=== PATIENT | female | born 1945 | race Caucasian/White ===

== ENCOUNTER 2019-09-20 18:02 | Inpatient (IN) | payer MEDICAID, MEDICARE, OTHER ==
[~2019-09-20] VITALS: Ht 175.3 cm; Wt 96.2 kg
--- NOTE | 2019-09-20 18:06 | NUR ---
PT IS IN ROOM #5 UNDER DIRECT OBSERVATION OF DENISE DIAZ. DR SAUL EVALUATED THE PT.
--- NOTE | 2019-09-20 18:15 | NUR ---
Patient medically clear to be admitted to MHU unit report will be given to receiving rn.
[2019-09-20] MEDS ORDERED: METO50TA16 PO (18:17)
[2019-09-20] MEDS ORDERED: ASPI81TA31 PO (18:17)
[2019-09-20] MEDS ORDERED: LOSA50TA39 PO (18:17)
--- NOTE | 2019-09-20 18:20 | NUR ---
Telephone report given to receiving R.N. by meteorologist in charger[place]. Rendon.
[2019-09-20 20:15] VITALS: BP 154/79
[2019-09-20] MEDS ORDERED: BLOOD SUGAR DIAGNOSTIC 1 EACH STRIP VI ONE (20:30)
[2019-09-20] MEDS ORDERED: ACETAMINOPHEN 325 MG TABLET PO PRN (20:30)
[2019-09-20] MEDS ORDERED: LORAZEPAM 0.5 MG TABLET PO PRN (20:30)
[2019-09-20] MEDS ORDERED: MAGNESIUM HYDROXIDE 30 ML LIQUID UDC PO PRN (20:30)
[2019-09-20] MEDS ORDERED: MAG HYDROX/AL HYDROX/SIMETH 30 ML LIQUID UDC PO PRN (20:30)
--- NOTE | 2019-09-20 21:00 | NUR ---
GPS ADMISSION NOTE: 74 YEARS OLD FEMALE BROUGHT TO [facility] VIA GURNEY ACCOMPANIED BY ER STAFF. PATIENT ADMITTED ON A 5150 FOR DTS UNDER THE CARE OF DR MURGUIA AND DR BISWAS. ACCORDING TO THE 5150 HOLD, 2 DAYS AGO, PATIENT CALLED HER DAUGHTER AFTER SHE DRUNK UNKNOWN AMOUNT OF ALCOHOL AND STATED TO HER THAT SHE HAD ENOUGH OF HER 54 YEARS OLD SON'S PROBLEMS AND DID NOT WANT TO CONTINUE HER LIFE WITH THIS PROBLEMS AND DID NOT WANT TO CONTINUE HER LIFE WITH THIS PROBLEMS. SHE ALSO TOLD HER DAUGHTER THAT SHE HAD A PULP MAKER OF PILLS IN HER POSSESSION. HER DAUGHTER TALKED PATIENT OUT OF TAKING PILLS BUT LATER DAUGHTER RECEIVED A SECOND CALL FROM PATIENT STATING THAT SHE SWALLOWED APPROX 30 (50MG) TRAZADONE PILLS. DAUGHTER THEN CALL 911 AND PATIENT WAS TAKEN TO [facility]. PATIENT WAS ADMITTED TO [facility] ICU AND SHE WAS PUT ON A 5150 HOLD ON 09/17/19. HOLD WILL END ON AT 2330. UPON FACE TO FACE ASSESSMENT, PATIENT NOTED A/O X 4, ABLE TO AMBULATE WITH STEADY GAIT. PATIENT NOTED IRRITABLE, DEMANDING, UNCOOPERATIVE. SHE WAS PREOCCUPIED ON HER BELONGINGS (DAUGHTER WAS PRESENT AT TIME OF ADMISSION). UPON INTERVIEW, PATIENT STATED TO THIS INTERLOCKING INSTALLER THAT, "I TOOK ALL THIS PILLS BECAUSE I WAS TIRED OF MY SITUATION AT HOME". BUT WHEN ASKED TO ELABORATE FURTHER, SHE STATED, "I DON'T WANT TO TALK ABOUT IT ANYMORE". PATIENT ALSO STATED THAT SHE USED TO SMOKE BUT QUIT LONG TIME AGO. SHE DENIES EVER USING ILLICIT DRUGS. HOWEVER, SHE STATED THAT SHE DRINKS ALCOHOL DAILY FOR THE PAST 3 MONTHS. PATIENT APPERS TO DOWNSIDE HER SA. HOWEVER, SHE DENIES SI AND SHE WAS ABLE TO CFS. HEAD TO TOE ASSESSMENT WAS LIMITED D/T PATIENT POOR COMPLIANT WITH THE ADMISSION. SHE ALSO REFUSED TO SIGN HER ADMISSION PAPER. PATIENT WILL CONTINUE WITH Q15 MIN CHECKS.
[2019-09-20] MEDS: TEMAZEPAM 7.5 MG CAPSULE PO PRN (21:05)
--- NOTE | 2019-09-20 23:50 | NUR ---
NARDA/GPS PATIENT ADMITTED ON A 5150 EXP. 09/20/2019 @2330. Patient signed voluntary admission. Plan of care in place, will monitor patient as well as provide a safe environment. Addendum: 09/20/19 at 2352 by SHEN CARLOS RN Amended: Links added.
--- NOTE | 2019-09-21 00:01 | NUR ---
GPS/NSG Physician notified through exchange of admission and request medication recon, exchange reported Dr. Chen had already done med reconciliation. Will endorse to a.m. shift to follow-up.
[2019-09-21] MEDS: TEMAZEPAM 7.5 MG CAPSULE PO PRN ×2 (00:26→20:58)
--- NOTE | 2019-09-21 05:28 | NUR ---
PATIENTS CAME TO THE NURSING STATION STATING THAT SHE FEELS SHE IS CONSTIPATED. MOM 30ML WAS GIVEN. PATIENT WAS NOTED CALM AND PLEASANT. UPON INTERVIEW, PATIENT STATED THAT SHE TOOK ALL THOSE PILLS IN AN ATTEMPT TO TAKE HER LIFE BECAUSE OF THE SITUATION THAT SHE WAS LIVING IN WITH HIS GROWN SON; HOWEVER, SHE DENIES WANTING TO . SHE STATED THAT THE SITUATION SHE WAS LIVING IN MADE HER ATTEMPT TO KILL HERSELF. SHE ALSO STATED THAT SHE HAS HAD 2 PREVIOUS SA, ONE WHEN SHE WAS 15 YEARS OLD (ATTEMPTED TO HUNG HERSELF0 AND WHEN SHE WAS 25YERS OLD BY OD ON PILL. PATIENT ALSO STATED THAT SHE HAS BEEN DRINKING ALCOHOL A WAY TO COPE WITH HER SITUATION AT HOME. PATIENT DENIES HAVING SUICIDAL THOUGHT OR A PLAN TO KILL HERSELF. SHE WAS ABLE TO CFS. WILL CONTINUE TO MONITOR Q15 MIN CHECKS.
[2019-09-21 07:30] VITALS: BP 160/95
[2019-09-21 07:37] LABS: BASOPHILS % (AUTO) 0.6 % (0.0-2.0); EOSINOPHILS # (AUTO) 0.1 K/uL (0.0-0.7); EOSINOPHILS % (AUTO) 2.5 % (0.0-7.0); HEMATOCRIT 34.2 % (31.2-41.9); HEMOGLOBIN 11.3 g/dL (10.9-14.3); LYMPHOCYTES # (AUTO) 0.9 K/uL (20.0-40.0); LYMPHOCYTES % (AUTO) 19.6 % (20.5-51.5); MEAN CORPUSCULAR HEMOGLOBIN 29.9 uug (24.7-32.8); MEAN CORPUSCULAR HGB CONC 33 g/dL (32.3-35.6); MEAN CORPUSCULAR VOLUME 90.1 fL (75.5-95.3); MONOCYTES # (AUTO) 0.4 K/uL (2.0-10.0); MONOCYTES % (AUTO) 9.9 % (0.0-11.0); NEUTROPHILS # (AUTO) 2.9 K/uL (1.8-8.9); NEUTROPHILS % (AUTO) 67.4 % (38.5-71.5); PLATELET COUNT (AUTO) 195 K/uL (179-408); WHITE BLOOD COUNT (AUTO) 4.3 K/uL (3.8-11.8)
[2019-09-21 07:53] LABS: ALANINE AMINOTRANSFERASE 16 U/L (14-59); ALKALINE PHOSPHATASE 77 U/L (50-136); ASPARTATE AMINOTRANSFERASE 23 U/L (15-37); BILIRUBIN,TOTAL 0.7 mg/dL (0.2-1.0); CARBON DIOXIDE 28 mmol/L (21-32); CHLORIDE 104 mmol/L (98-107); CREATININE 1.5 mg/dL (0.6-1.3); GLUCOSE 99 mg/dL (74-106); POTASSIUM 4.1 mmol/L (3.5-5.1); TOTAL PROTEIN, SERUM 7.7 g/dL (6.4-8.2); UREA NITROGEN, BLOOD 20 mg/dL (7-18)
--- NOTE | 2019-09-21 11:43 | NUR ---
Initial Discharge Plan: Patient currently resides at her home [address] [place] [id number]. Patient lives with her 54 year old son who is currently homeless. Patient would like to return back home. glueline worker will continue to work with patient, family, and MD to ensure a safe and proper discharge plan.
--- NOTE | 2019-09-21 11:44 | NUR ---
Firearms Report (DOJ): Hr Administrative Assistant completed and submitted a [employer] firearms report for 5150 Danger to Self certification. A copy of report has been placed in patient chart.
--- NOTE | 2019-09-21 11:46 | NUR ---
Substance Abuse Intervention: Patient was provided with a brief substance abuse intervention and referred to [facility] , [facility] , and [facility] .
[2019-09-21] MEDS: METOPROLOL TARTRATE 50 MG TABLET PO SCH (12:10)
[2019-09-21] MEDS: LOSARTAN POTASSIUM 50 MG TABLET PO SCH (12:11)
[2019-09-21 14:55] LABS: *BILIRUBIN,URIN NEGATIVE (NEGATIVE); *BLOOD, URINE NEGATIVE (NEGATIVE); *COLOR,URINE YELLOW (YELLOW); *KETONES,URINE NEGATIVE (NEGATIVE); LEUKOCYTE ESTERASE ,URINE 2+ (NEGATIVE); NITRITE, URINE NEGATIVE (NEGATIVE); PH,URINE 8.5 (5.0-8.0); UGLUCOSE NEGATIVE (NEGATIVE)
[2019-09-21 15:06] LABS: *CLARITY,URINE HAZY (CLEAR)
[2019-09-21 15:07] LABS: BACTERIA,URINE MODERATE /HPF (NONE SEEN); RBC,URINE 0-3 /HPF (0-3); SQUAMOUS EPITHELIAL CELL,UR MODERATE /HPF (NONE SEEN); WBC,URINE 50-80 /HPF (0-3)
[2019-09-21 17:03] VITALS: BP 148/77
[2019-09-21] MEDS: CEphaleXIN 500 MG CAPSULE PO SCH (17:36)
[2019-09-21 20:39] VITALS: BP 131/60
[2019-09-21] MEDS: ESCITALOPRAM OXALATE 10 MG TABLET PO SCH (20:51)
[2019-09-22 07:50] VITALS: BP 145/53
[2019-09-22] MEDS: LOSARTAN POTASSIUM 50 MG TABLET PO SCH (08:26)
[2019-09-22] MEDS: CEphaleXIN 500 MG CAPSULE PO SCH ×2 (08:26→16:10)
[2019-09-22] MEDS: ASPIRIN 81 MG TAB.CHEW PO SCH (08:26)
[2019-09-22] MEDS: METOPROLOL TARTRATE 50 MG TABLET PO SCH (08:27)
[2019-09-22] MEDS ORDERED: MAGNESIUM OXIDE 400 MG TABLET PO ONE (09:00)
[2019-09-22 16:56] VITALS: BP 154/74
--- NOTE | 2019-09-22 18:20 | NUR ---
GPS : patient Aox3, compliant with medication seen participating in the group activity patient compliant with medication denies SI and HI
[2019-09-22 20:01] VITALS: BP 153/78
[2019-09-22] MEDS: ESCITALOPRAM OXALATE 10 MG TABLET PO SCH (20:17)
[2019-09-22] MEDS: TEMAZEPAM 7.5 MG CAPSULE PO PRN (22:08)
[2019-09-23 06:47] LABS: CARBON DIOXIDE 26 mmol/L (21-32); CHLORIDE 103 mmol/L (98-107); CREATININE 1.4 mg/dL (0.6-1.3); GLUCOSE 99 mg/dL (74-106); PHOSPHOROUS 4.7 mg/dL (2.5-4.9); POTASSIUM 4.4 mmol/L (3.5-5.1); UREA NITROGEN, BLOOD 26 mg/dL (7-18)
[2019-09-23 06:50] LABS: EOSINOPHILS # (AUTO) 0.1 K/uL (0.0-0.7); EOSINOPHILS % (AUTO) 4.5 % (0.0-7.0); HEMATOCRIT 32.1 % (31.2-41.9); HEMOGLOBIN 10.5 g/dL (10.9-14.3); MEAN CORPUSCULAR HGB CONC 33 g/dL (32.3-35.6); MEAN CORPUSCULAR VOLUME 91.9 fL (75.5-95.3); MONOCYTES # (AUTO) 0.5 K/uL (2.0-10.0); MONOCYTES % (AUTO) 14.2 % (0.0-11.0); NEUTROPHILS # (AUTO) 1.7 K/uL (1.8-8.9); NEUTROPHILS % (AUTO) 51.3 % (38.5-71.5); PLATELET COUNT (AUTO) 204 K/uL (179-408); RED BLOOD CELL COUNT(AUTO) 3.49 MIL/uL (3.63-4.92); WHITE BLOOD COUNT (AUTO) 3.3 K/uL (3.8-11.8)
[2019-09-23 07:41] VITALS: BP 149/80
[2019-09-23] MEDS: CEphaleXIN 500 MG CAPSULE PO SCH ×2 (08:00→16:04)
[2019-09-23] MEDS: LOSARTAN POTASSIUM 50 MG TABLET PO SCH (08:01)
[2019-09-23] MEDS: METOPROLOL TARTRATE 50 MG TABLET PO SCH (08:01)
[2019-09-23] MEDS: ASPIRIN 81 MG TAB.CHEW PO SCH (08:01)
[2019-09-23 10:19] LABS: MAGNESIUM 2.2 mg/dL (1.8-2.4)
[2019-09-23 16:44] VITALS: BP 145/68
[2019-09-23 20:00] VITALS: BP 142/70
[2019-09-23] MEDS: ESCITALOPRAM OXALATE 10 MG TABLET PO SCH (20:43)
[2019-09-23] MEDS: TEMAZEPAM 7.5 MG CAPSULE PO PRN (22:24)
--- NOTE | 2019-09-24 07:25 | NUR ---
patient slept for approx 4.00 hrs through the night. she is noted calm, and pleasant, goal oriented. denies SI, she is able to CFS. will continue to monitor.
[2019-09-24 07:30] VITALS: BP 145/54
[2019-09-24] MEDS: CEphaleXIN 500 MG CAPSULE PO SCH ×2 (08:03→16:03)
[2019-09-24] MEDS: LOSARTAN POTASSIUM 50 MG TABLET PO SCH (08:03)
[2019-09-24] MEDS: ASPIRIN 81 MG TAB.CHEW PO SCH (08:03)
[2019-09-24] MEDS: METOPROLOL TARTRATE 50 MG TABLET PO SCH (08:04)
--- NOTE | 2019-09-24 15:00 | NUR ---
Social Work Note/UR Note: AUTHORIZATION#[id number] OBTAINED FROM ARIADNA CORTEZ AT [phone] EXT [phone]. CLINICAL CAN BE FAXED TO [phone].
--- NOTE | 2019-09-24 15:02 | NUR ---
Social Work Note/UR Note: Eeo Officer spoke with Irlanda Floral Department Specialist at [facility] ([phone] ext:[phone]) regarding getting patient set up with outpatient service for psychaitry and therapy. Irlanda will be working on this request and getting back to this personal lines underwriter later today.
--- NOTE | 2019-09-24 15:30 | NUR ---
Social Work Note/Individual Counseling: Patient met with patient today and provided brief one on one individual counseling. Patient expressed that she is feeling ready to go back home. patient denies suicidal ideation. Patient requested for homeless resources for her son. SW provided patient with the homeless [place] [facility] packet, which includes a list of emergency shelters, housing resources, drop in centers, and showers/hot meals centers. This also included the Homeless Information Hotline (831)-334-5002 or 211, [employer] [facility] [employer] , and the [facility] ([phone].
[2019-09-24 16:05] VITALS: BP 136/63
--- NOTE | 2019-09-24 18:26 | NUR ---
GPS:patient calm cooperative, denies SI and HI, patient compliant with medication in no distress at this time
[2019-09-24 20:23] VITALS: BP 121/53
[2019-09-24] MEDS: ESCITALOPRAM OXALATE 10 MG TABLET PO SCH (20:27)
[2019-09-24] MEDS: TEMAZEPAM 7.5 MG CAPSULE PO PRN (23:05)
[2019-09-25 07:30] VITALS: BP 135/55
[2019-09-25] MEDS: CEphaleXIN 500 MG CAPSULE PO SCH (08:10)
[2019-09-25] MEDS: ASPIRIN 81 MG TAB.CHEW PO SCH (08:10)
[2019-09-25] MEDS: METOPROLOL TARTRATE 50 MG TABLET PO SCH (08:11)
[2019-09-25 08:12] VITALS: BP 135/55
[2019-09-25] MEDS: LOSARTAN POTASSIUM 50 MG TABLET PO SCH (08:12)
--- NOTE | 2019-09-25 10:17 | NUR ---
Social Work Note/Family Contact: Track Grinder Operator spoke with patient's daughter, Avril Clark ([phone]) and informed of patient discharge plan this afternoon. SW also informed of the patient's outpatient resources that were scheduled and provided for the patient (indicated on discharge note). Avril expressed her gratitude and si aware and agreeable with discharge plans.
--- NOTE | 2019-09-25 10:17 | NUR ---
Social Work Note/Discharge Note: Patient will be discharged back home [address] [place] [address] ([phone]). Patient will be transported via [facility] at 12:05pm. Patient is aware and agreeable with discharge plans. Patient denies suicidal or homicidal ideation. Patient is alert and oriented times 4 and presents with calm mood and euthymic affect. Patient is able to plan for self-care. Patient will be following up with her primary care physician Dr. Martino at [facility] [address] [place] [address] ([phone]) on October 02, 2019 at 10AM. Patient will be following up with a Nurse Practitioner, Case Cintron for medication management at [facility] [address] [place] [address] ([phone]) on October 05, 2019 at 1:45pm. Patient will also be following up with a Licensed Clinical Supervisor Word Processing for outpatient therapy services at [facility] [address], [place] [address] ([phone]) on October 02, 2019 at 8:30am. Patient was provided with outpatient mental health resources to [facility] Crisis Line , the National Suicide Prevention Lifeline , and the [facility] Substance Abuse Helpline (088-284-3330). Patient was provided with a brief substance abuse intervention and provided with the [facility] Substance Abuse Self-helpline ([facility]) ([phone]), [facility] [address] [place] [address] ([phone]), [address] [place] [address] ([phone]).
--- NOTE | 2019-09-25 10:18 | NUR ---
Social Work Note/UR Note: Patient left a voicemail message for correctional case records supervisor Vaibhav Reis at [facility] ([phone] ext. [phone]) regarding patient's discharge today back home. AUTHORIZATION#[id number]
--- NOTE | 2019-09-25 12:10 | NUR ---
DISCHARGE NOTES, PATIENT AOX4, PATIENT DISCHARGE TO HOME , PATIENT RECEIVED HER VALUABLES AND BELONGING AND SIGNED HER HOME MEDICATION , GAVE HER PRESCRIPTION WITH HER DISCHARGE PACKET, FAMILY AWARE OF THE DISCHARGE, MD MADE AWARE
--- NOTE | 2019-10-09 14:22 | NUR ---
Social Work Substance Abuse Follow Up Intervention: Coal Carrier was unable to conduct thorough substance abuse intervention follow up due to having three unsuccessful attempts to reach patient.
== END 2019-09-25 12:00 | disposition still patient (30) | DRG 885 ==
LOC: ER 18:02 → GPS 18:41
PROVIDERS: ADMIT Psychiatry & Neurology Psychiatry; ATTEND Registered Nurse
DX: F33.2 Major depressive disorder, recurrent severe without psychotic features (principal); N17.9 Acute kidney failure, unspecified; N39.0 Urinary tract infection, site not specified; N18.9 Chronic kidney disease, unspecified; T43.212D Poisoning by selective serotonin and norepinephrine reuptake inhibitors, intentional self-harm, subsequent encounter; I12.9 Hypertensive chronic kidney disease with stage 1 through stage 4 chronic kidney disease, or unspecified chronic kidney disease; E66.9 Obesity, unspecified; F10.229 Alcohol dependence with intoxication, unspecified; Y90.9 Presence of alcohol in blood, level not specified; K21.9 Gastro-esophageal reflux disease without esophagitis; I13.10 Hypertensive heart and chronic kidney disease without heart failure, with stage 1 through stage 4 chronic kidney disease, or unspecified chronic kidney disease; E86.9 Volume depletion, unspecified; Z91.5 Personal history of self-harm
CPT/HCPCS: 36415; 83735; 84100; 85025; 87077; 87086; A4663